=== PATIENT | female | born 1970 | race Caucasian/White ===

== ENCOUNTER 2016-08-14 14:59 | Emergency (ER) | payer OTHER ==
[~2016-08-14] VITALS: Ht 162.6 cm; Wt 81.4 kg
[2016-08-14 15:38] LABS: HEMATOCRIT 39.5 % (36.0-46.0); MCH 30.2 PG (29.0-34.0); MCHC 34.2 G/DL (30.0-36.0); MCV 88.4 FL (83-99); MEAN PLAT.VOLUME 10.3 uM^3 (9.5-12.4); PLATELET COUNT 253 K/uL (156-360); RBC DIS.WIDTH-CV 12.3 % (11.8-14.6); RED BLOOD COUNT 4.47 M/uL (3.80-5.20); WHITE BLOOD COUNT 7.4 K/uL (4.1-10.2)
[2016-08-14 15:51] LABS: ADD MIUA? YES; BILIRUBIN NEGATIVE; BLOOD NEGATIVE; COLOR STRAW ((YELLOW)); GLUCOSE (STRIP) NEGATIVE; KETONES NEGATIVE; LEUKOCYTES LARGE; NITRITE NEGATIVE; PROTEIN (STRIP) NEGATIVE; SPECIFIC GRAVITY 1.008 (1.000-1.030); UROBILINOGEN 0.2 MG/DL (0.2-1.0)
[2016-08-14 15:54] LABS: CHLORIDE 106 mEq/L (99-109); POTASSIUM 4.2 mEq/L (3.7-5.4); SODIUM 139 mEq/L (136-147)
[2016-08-14 15:57] LABS: GLUCOSE 104 mg/dL (70-99)
[2016-08-14 15:58] LABS: ANION GAP 7 MEQ/L (2-14)
[2016-08-14 15:58] LABS: BACTERIA RARE /HPF; EPITHELIAL CELLS 1+ /HPF; MUCUS NONE SEEN /LPF; WHITE BLOOD CELLS 30-40 /HPF (0-5)
[2016-08-14 15:59] LABS: TOTAL BILIRUBIN 0.4 mg/dL (0.0-1.0)
[2016-08-14 16:00] LABS: ALKALINE PHOSPHATASE 64 IU/L (3-129)
[2016-08-14 16:01] LABS: GFR ESTIMATE (CALCULATED) > 59 mL/min/
[2016-08-14 16:02] LABS: UREA NITROGEN (BUN) 11 mg/dL (9-23)
[2016-08-14 16:04] LABS: LIPASE 34 U/L (1.0-51.0)
[2016-08-14 16:09] LABS: QUANTITATIVE HCG < 4.0 MIU/ML
[2016-08-14] MEDS ORDERED: KEFLEX500 MG PO (16:14)
[2016-08-14] MEDS ORDERED: ZOFRAN ODT4 MG PO (16:14)
[2016-08-14 16:32] VITALS: BP 121/70
== END 2016-08-14 16:33 | disposition home or self-care (01) ==
LOC: EME 14:59
PROVIDERS: Nurse Practitioner Family
DX: R10.11 Right upper quadrant pain (principal); R11.0 Nausea; N39.0 Urinary tract infection, site not specified; E03.9 Hypothyroidism, unspecified
CPT/HCPCS: 80053; 81003; 83690; 84702; 85027; 99281; 99284

== ENCOUNTER → 2016-12-26 | Outpatient (CLI) | payer OTHER ==
[~2016-12-26] VITALS: Ht 162.6 cm; Wt 71.2 kg
[~2016-12-26] MED LIST: FOLGARD1 TABLET PO; KEFLEX500 MG PO; LEVOXYL137 MCG PO; MIRENA1 EACH IY; ZOFRAN ODT4 MG PO
== END | disposition home or self-care (01) ==
LOC: AMB 13:09
PROC: 0DBB8ZX Excision of Ileum, Via Natural or Artificial Opening Endoscopic, Diagnostic (ICD-10-PCS; principal; 2016-12-26)
DX: R10.11 Right upper quadrant pain (principal); K52.9 Noninfective gastroenteritis and colitis, unspecified; R93.3 Abnormal findings on diagnostic imaging of other parts of digestive tract; Z83.71 Family history of colonic polyps; K62.89 Other specified diseases of anus and rectum
CPT/HCPCS: 88305